=== PATIENT | male | born 1985 | race Caucasian/White ===

== ENCOUNTER 2017-09-22 19:21 | Emergency (ER) | payer OTHER ==
[2017-09-22 19:39] VITALS: RESP 18
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
--- NOTE | 2017-09-22 20:48 | XR ---
PROCEDURE: XR ankle complete RT, 3 views DATE AND TIME: 09/22/2017 8:05 PM REFERRING PHYSICIAN: Sai Sams MD CLINICAL INDICATION: PHH, Pain TECHNIQUE: Department protocol. COMPARISON: None FINDINGS: There is a one shaft lateral displacement distal fibular shaft oblique fracture with 1.5 cm override. There is disruption of the mortise, with 1.5 cm lateral subluxation of the talus with respect to the tibial plafond. There is a posterior malleolar fracture. IMPRESSION: RIGHT ANKLE COMPLEX FRACTURE/DISLOCATION.
[2017-09-22 21:44] VITALS: BP 142/75; PULSE 58; TEMP 98.6
== END 2017-09-22 21:42 | disposition home or self-care (01) ==
LOC: EC 19:21
DX: S82.61XA Displaced fracture of lateral malleolus of right fibula, initial encounter for closed fracture (principal); Z79.899 Other long term (current) drug therapy; V19.88XA Pedal cyclist (driver) (passenger) injured in other specified transport accidents, initial encounter; Y93.55 Activity, bike riding
CPT/HCPCS: 27788; 99284

== ENCOUNTER 2017-10-02 13:22 | Day surgery (SDC) | payer OTHER ==
[2017-09-30 13:12] VITALS: BMI 26.4
[~2017-10-02 13:22] MED LIST: ACETAMINOPHEN TAB 500 MG TAB PO ONE; DEXAMETHASONE SOD PHOSPHATE 10 MG/ML 1 ML VIAL IV ONE; LACTATED RINGERS 1,000 ML IV SCH; LIDOCAINE 1% 20 ML VIAL (10MG/ML) FOR IV START INTRADERMA PRN; MIDAZOLAM 2 MG/2 ML VIAL IV PRN; ONDANSETRON 4 MG/2 ML VIAL IVP ONE; SCOPOLAMINE 1.5MG/72HR PATCH TRANSDERM ONE; ceFAZolin IN SWFI 2 GM/20 ML SYRINGE IVP ONE
[2017-10-02] MEDS ORDERED: fentaNYL (PF) 50 MCG/ML 2 ML AMP ONE (15:41)
[2017-10-02] MEDS ORDERED: SUCCINYLCHOLINE CHLORIDE 100 MG/5 ML SYR IV ONE (15:41)
[2017-10-02] MEDS ORDERED: LACTATED RINGERS 1,000 ML IV ONE ×2 (15:41→16:11)
[2017-10-02] MEDS ORDERED: ceFAZolin 1,000 MG VIAL IVPB ONE (15:41)
[2017-10-02] MEDS ORDERED: LIDOCAINE 1% INJ 10MG/ML (20 ML MDV) ONE (15:41)
[2017-10-02] MEDS ORDERED: PROPOFOL 10 MG/ML 20 ML VIAL IV ONE (15:41)
[2017-10-02] MEDS ORDERED: ROPIVACAINE 5 MG/ML 30 ML VIAL MISCELLANE ONE (15:41)
[2017-10-02] MEDS ORDERED: diphenhydrAMINE 50 MG/ML 1 ML VIAL ONE (15:41)
[2017-10-02] MEDS ORDERED: MIDAZOLAM 2 MG/2 ML VIAL ONE (15:41)
[2017-10-02] MEDS ORDERED: ceFAZolin 1,000 MG in SODIUM CHLORIDE 0.9% 1,000 ML IRRIGATION ONE (16:11)
[2017-10-02 17:15] VITALS: TEMP 97.2
[2017-10-02] MEDS: HYDROmorphone 0.5 MG/0.5 ML SYRINGE IVP PRN ×2 (17:27→17:47)
[2017-10-02 17:29] VITALS: RESP 16
[2017-10-02] MEDS ORDERED: HYDROcodone/APAP 5-325MG 1 EACH TAB PO ONE ×2 (18:30→19:01)
[2017-10-02 19:05] VITALS: BP 143/75; PULSE 72
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
--- NOTE | 2017-10-03 08:50 | FL ---
Fluoroscopy HISTORY: Open reduction internal fixation 20 seconds fluoroscopy time supplied to the referring lucioi pat. 6 intraoperative C-arm images document the procedure. See dictated report from orthopedic surg edith.
--- NOTE | 2017-10-03 10:21 | XR ---
Limited right ankle HISTORY: Open reduction internal fixation 6 intraoperative C-arm images document the procedure.
== END 2017-10-02 19:11 | disposition home or self-care (01) ==
LOC: OR 13:22
PROVIDERS: ATTEND Orthopaedic Surgery Sports Medicine
DX: S82.61XA Displaced fracture of lateral malleolus of right fibula, initial encounter for closed fracture (principal); V19.3XXA Pedal cyclist (driver) (passenger) injured in unspecified nontraffic accident, initial encounter; Y92.830 Public park as the place of occurrence of the external cause
CPT/HCPCS: 27792; 73610; C1713; J2250; J1200; J1100; J2405; J0690; J2001; J3010; J2795; J0330; J2704; J1170